=== PATIENT | female | born 1990 | race Caucasian/White ===

== ENCOUNTER → 2017-09-09 | Outpatient (CLI) | payer BC ==
--- NOTE | 2017-09-09 08:42 | MR ---
EXAMINATION TYPE: MR brain wo con DATE OF EXAM: 09/09/2017 COMPARISON: NONE HISTORY: Headaches T1-weighted sagittal, T2, FLAIR, and diffusion axial, and T2 coronal coronal views of the brain are s ubmitted. There is no evidence of acute ischemia. The ventricles, basal cisterns, and sulci overlying the conv exities are consistent with the patient's age. There is no mass effect. Craniocervical junction maintained. Sella turcica has a normal appearance. No cerebellopontine angle mass. Changes of mild chronic sinusitis noted. White matter: No sizable areas of abnormal signal seen within the visualized white matter IMPRESSION: 1. No acute intracranial process
== END | disposition home or self-care (01) ==
LOC: RADMRIMAIN 07:51
PROVIDERS: ATTEND Psychiatry & Neurology Neurology
DX: R51 Headache (principal); Z88.1 Allergy status to other antibiotic agents
CPT/HCPCS: 70551

== ENCOUNTER → 2019-12-19 | Outpatient (CLI) | payer OTHER ==
--- NOTE | 2019-12-19 10:08 | MR ---
MR right wrist without contrast HISTORY: Pain in right wrist Multiplanar multisequence imaging obtained through the right wrist There are no comparisons At the level of the extensor carpi ulnaris tendon and distal aspect of the ulna there is some increas ed T2 signal present within the soft tissues. The tendon shows some thickening and abnormal increased intrinsic signal. The extensor carpi ulnaris tendon shows a normal position within the ulnar groove. A tear of the triangular fibrocartilage is questioned due to obliquity of the exam, true coronal view is lacking, some fluid signal is present at the ulnar and radial aspect of the wrist joint. T2 data set, coronal image 14 shows the triangular fibrocartilage to likely be intact. Scapholunate, lunotriq uetral ligaments thought to be intact. Bone marrow signal is maintained. No evident fracture or dislo cation. Flexor and extensor tendons are intact. 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
== END | disposition home or self-care (01) ==
LOC: RADMRIMAIN 06:02
PROVIDERS: ATTEND Orthopaedic Surgery
DX: M67.833 Other specified disorders of tendon, right wrist (principal)

== ENCOUNTER → 2024-02-10 | Outpatient (CLI) | payer OTHER ==
[2024-02-10 15:22] LABS: Basophils # (A) 0.04 X 10*3/uL (0.00-0.10); Basophils % (A) 0.7 %; Eosinophils # (A) 0.03 X 10*3/uL (0.04-0.35); Eosinophils % (A) 0.5 %; HCT 42.5 % (37.2-46.3); HGB 13.7 g/dL (12.0-15.0); Lymphocytes # (A) 1.58 X 10*3/uL (0.90-5.00); Lymphocytes % (A) 27.6 %; MCH 30.8 pg (27.0-32.0); MCHC 32.2 g/dL (32.0-37.0); MCV 95.5 FL (80.0-97.0); Mean Platelet Volume 10.5 FL (9.5-12.2); Monocytes # (A) 0.67 X 10*3/uL (0.20-1.00); Monocytes % (A) 11.7 %; NRBC Per 100 WBC 0 X 10*3/uL (0.00-0.01); Neutrophils # (A) 3.38 X 10*3/uL (1.80-7.70); Neutrophils % (A) 59.2 %; Platelet Count 258 X 10*3/uL (140-440); RBC 4.45 X 10*6/uL (4.10-5.20); RDW 13.3 % (11.5-14.5); WBC 5.72 X 10*3/uL (4.50-10.00)
[2024-02-10 16:03] LABS: Erythrocyte Sedimentation Rate 2 mm/Hr (0-20)
[2024-02-10 16:11] LABS: C Reactive Protein <0.30 mg/dL (0.00-0.80); Rheumatoid Factor, Qnt <15 IU/mL (0-15)
[2024-02-10 16:12] LABS: BUN/Creat Ratio 18.12 Ratio (12.00-20.00); Blood Urea Nitrogen 14.5 mg/dL (9.0-27.0); Calcium 9.5 mg/dL (8.7-10.3); Carbon Dioxide 23.2 mmol/L (21.6-31.8); Chloride 108 mmol/L (96-109); Glucose 101 mg/dL (70-110); Potassium 4.4 mmol/L (3.5-5.5); Sodium 142 mmol/L (135-145); Uric Acid 3.2 mg/dL (2.9-7.7)
== END | disposition home or self-care (01) ==
LOC: LABWHC1 10:10
PROVIDERS: ATTEND Orthopaedic Surgery
DX: M79.644 Pain in right finger(s) (principal)
CPT/HCPCS: 36415; 80048; 82164; 84550; 85025; 85652; 86038; 86140; 86431